=== PATIENT | male | born 1960 | race Hispanic/Latino ===

== ENCOUNTER 2025-05-29 11:10 | Emergency (ER) | payer MEDICARE, OTHER ==
[2025-05-29 11:57] LABS: Bacteria/HPF 2+ HPF (None Seen); CAUTI Indications for Culture Acute Hematuria; Glucose, Urine (Dipstick) Greater than 1000 mg/dL (Negative); Leukocyte 500 Leu/uL (Negative); Protein, Urine (Dipstick) 70 mg/dL (Neg-Trace); Specific Gravity, Urine 1.021 (1.002-1.036); WBC/HPF Greater than 50 HPF (0-3)
[2025-05-29 12:33] LABS: Urine Culture Reflex Yes Yes
[2025-05-29] MEDS ORDERED: cefTRIAXone (ROCEPHIN) 500 MG VIAL ONE (13:27)
[2025-05-29] MEDS ORDERED: Azithromycin 250 MG TAB ONE (13:27)
[2025-05-29] MEDS ORDERED: Lidocaine 1% PF 5 ML VIAL ONE (13:27)
[2025-05-31 02:43] LABS: Chlam.trachomatis by PCR,Urine Not Detected (NotDetected); GC N.gonorrhoeae PCR,UrineVOID Not Detected (NotDetected)
== END 2025-05-29 13:30 | disposition home or self-care (01) ==
LOC: ERS 11:10
DX: N45.1 Epididymitis (principal); N39.0 Urinary tract infection, site not specified; I11.0 Hypertensive heart disease with heart failure; I50.9 Heart failure, unspecified; E78.5 Hyperlipidemia, unspecified; I25.2 Old myocardial infarction; Z87.891 Personal history of nicotine dependence
CPT/HCPCS: 76870; 81001; 87086; 87491; 87591; 93976; J0696; 87077; 87186; 96372